=== PATIENT | female | born 1980 | race Caucasian/White ===

== ENCOUNTER 2017-12-05 17:41 | Emergency (ER) | payer BC ==
--- NOTE | 2017-12-05 21:29 | ED ---
Headache - HPI Summary HPI Summary: 37 y/o female presents to the ED c/o severe BHARDWAJ starting at noon today. Pt is 11 weeks . Pain started with pressure at the base of her head after playing with her son. Pressure at neck resolved, BHARDWAJ worsening throughout the day. Waxing and waning BHARDWAJ located diffusely over the head, with severe pains lasting 20-30 minutes. Pt c/o light sensitivity. Pt is nauseous usually at evenings, with this . PMHx migraine BHARDWAJ, Grave's disease (dx 15 years ago). Sx - thyroid removal. Pt has not had a BHARDWAJ like this for 10 years. G/P/A - 0. Pt states her thyroid levels are off currently. - History Of Current Complaint Chief Complaint: EDHeadache Stated Complaint: 11 WKS PREG/HEADACHE Time Seen by Provider: 12/05/17 21:23 Hx Obtained From: Patient Onset/Duration: Started hours ago, Still Present Timing: Constant Character: Sharp Location of Headache: Diffuse Aggravating Factor: Bright Lights Allevating Factors: Nothing Associated Signs And Symptoms: Nausea, Other (Noted In Comments) - light sensitivity - Allergies/Home Medications Allergies/Adverse Reactions: Allergies Allergy/AdvReac Type Severity Reaction Status Date / Time No Known Allergies Allergy Verified 12/05/17 21:54 PMH/Surg Hx/FS Hx/Imm Hx Previously Healthy: No Endocrine/Hematology History: Reports: Hx Thyroid Disease - hypo Denies: Hx Diabetes Cardiovascular History: Denies: Hx Hypertension, Hx Pacemaker/ICD Respiratory History: Denies: Hx Asthma, Hx Chronic Obstructive Pulmonary Disease (COPD) GI History: Denies: Hx Ulcer Sensory History: Denies: Hx Hearing Aid Psychiatric History: Denies: Hx Panic Disorder - Surgical History Surgery Procedure, Year, and Place: orthoscopic rt knee surgery. Mole removal from nose. wisdom teeth Infectious Disease History: No Infectious Disease History: Denies: Hx Hepatitis, Hx Human Immunodeficiency Virus (HIV), Traveled Outside the [place] in Last 30 Days - Social History Alcohol Use: Occasionally Substance Use Type: Reports: None Smoking Status (MU): Never Smoked Tobacco Review of Systems Constitutional: Negative Positive: Photophobia ENT: Negative Cardiovascular: Negative Respiratory: Negative Positive: Nausea Genitourinary: Negative Musculoskeletal: Negative Skin: Negative Positive: Headache Psychological: Normal All Other Systems Reviewed And Are Negative: Yes Physical Exam - Summary Physical Exam Summary: Appearance: Well-appearing, Well-nourished, lying in bed comfortably Skin: Warm, dry, no obvious rash Eyes: sclera anicteric, no conjunctival pallor ENT: mucous membranes moist, pharynx appears normal Neck: Supple, nontender Respiratory: Clear to auscultation, no signs of respiratory distress Cardiovascular: Normal S1, S2. No murmurs. Normal distal pulses in tibial and radial bilaterally. Abdomen: Soft, nontender, normal active bowel sounds present Musculoskeletal: Normal, Strength/ROM Intact, Motor function in all 4 extremities is normal and symmetric. There is no rigidity or tremor noted. Neurological: A&Ox3, awake and alert, mentation is normal, speech is fluent and appropriate, Level of consciousness nml. The patient is alert and oriented. Cranial nerves are grossly intact. Gaze is conjugate and without nystagmus. Peripheral vision is intact to confrontation. There are no gross sensory abnormalities to light touch. There is no truncal or fine motor ataxia. Gait is normal. Psychiatric: affect is normal, does not appear anxious or depressed Triage Information Reviewed: Yes Vital Signs On Initial Exam: Initial Vitals Temp Pulse Resp BP Pulse Ox 99.5 F 59 16 102/56 100 12/05/17 17:52 12/05/17 17:52 12/05/17 17:52 12/05/17 17:52 12/05/17 17:52 Vital Signs Reviewed: Yes Diagnostics - Vital Signs Vital Signs Temp Pulse Resp BP Pulse Ox 12/05/17 20:29 99.3 F 61 16 105/67 100 12/05/17 18:53 99.7 F 68 16 109/61 100 12/05/17 17:52 99.5 F 59 16 102/56 100 - Laboratory Lab Statement: Any lab studies that have been ordered have been reviewed, and results considered in the medical decision making process. Re-Evaluation - Re-Evaluation 1 Re-Evaluation Time: 23:00 Change: Improved - discussed plan to d/c Headache Course/Dx - Course Assessment/Plan: 37 y/o female presents to the ED c/o severe BHARDWAJ starting at noon today. Pt is 11 weeks . Benadryl, Reglan and fluids given in ED course. On re-eval pt reports sx improved. Pt will be d/c home. - Diagnoses Provider Diagnoses: Migraine headache Discharge - Sign-Out/Discharge Documenting (check all that apply): Patient Departure - Discharge Plan Condition: Stable Disposition: HOME Prescriptions: Metoclopramide TAB* [Reglan TAB*] 10 mg PO Q6H PRN #12 tab PRN Reason: Headache/Pain Patient Education Materials: Migraine Headache (ED) Referrals: Maria E Deng MD [Primary Care Provider] - - Billing Disposition and Condition Condition: STABLE Disposition: Home - Attestation Statements Document Initiated by Scribe: Yes Documenting Scribe: Napoleon Ramirez Provider For Whom Scribe is Documenting (Include Credential): Mehran Sellers MD Scribe Attestation: Napoleon Sow scribed for Mehran Sellers MD on 12/09/17 at 1839. Scribe Documentation Reviewed: Yes Provider Attestation: The documentation as recorded by the Napoleon mahmood accurately reflects the service I personally performed and the decisions made by me, Mehran Sellers MD
[2017-12-05] MEDS ORDERED: diPHENhydraMINE IV* 50 MG/ML 1 ml VIAL (BENADRYL) IV ONE (21:35)
[2017-12-05] MEDS ORDERED: Metoclopramide IV* 5 MG/ML 2 ML VIAL IV SLOW PU ONE (21:36)
[2017-12-05] MEDS: NS 0.9% 1000 ML* 2,000 ML IV ONE (22:00)
[2017-12-05 22:49] VITALS: BP 115/70
== END 2017-12-05 23:16 | disposition home or self-care (01) ==
LOC: ED 17:41
DX: O26.891 Other specified pregnancy related conditions, first trimester (principal); G43.909 Migraine, unspecified, not intractable, without status migrainosus; Z3A.11 11 weeks gestation of pregnancy; O99.281 Endocrine, nutritional and metabolic diseases complicating pregnancy, first trimester; E03.9 Hypothyroidism, unspecified
CPT/HCPCS: 96374; 96375; 99282; J1200; J2765

== ENCOUNTER 2018-06-24 02:58 | Inpatient (IN) | payer BC ==
--- NOTE | 2018-06-24 04:24 | HP ---
General Information - Reason for Visit IUP at 40-02/20 in labor - General Information Maternal Age: 37 Grav: 1 Para: 0 SAB: 0 IEA: 0 Estimated Due Date: 06/23/18 Determined By: LMP Gestational Age in Weeks/Days: 40-02/20 Maternal Blood Type and Rh: A Negative - Results this Serology/RPR Result: Non-Reactive Rubella Result: Immune HBsAg Result: Negative HIV Result: Negative GBS Culture Result: Positive Past Medical History Delivery History: Hx Uncomplicated Vaginal Delivery Delivery History Comment: 10/2015 7lbs 4oz male. Delivered at [facility] [place] by Nannette Ortiz CNM Pertinent Past Medical History: See Records Past Medical History Comment: Graves disease on replacement. Followed by endocrinology. Pre- dose of replacement: 100mcg daily Asthma Migraine Allergies, environmental Pertinent Past Surgical History: See Records Past Surgical History Comment: 2000 right knee arthroscopy 2012 oral surgery Pertinent Family History: See Records Family History Comment: Father: HTN Sister: Ovarian tumor, benign PGM: HTN, peripheral vascular disease. , CVA PGF: HTN. , heart disease MGM: , CHF MGF: , colon cancer Paternal aunt: Breast cancer - Antepartal Records Antepartal Records: Reviewed, Uncomplicated - Rh negative, received RhoGAM, Graves disease on replacement Review of Systems Constitutional: Uncomfortable - with UCs CV Complaint: No Respiratory: Shortness of Breath: No Gastrointestinal: No Nausea/Vomiting, Normal Bowel Movement Genitourinary: No Dysuria, No Bleeding, No Leaking Fluid Musculoskeletal: Contractions, Pressure Neurological: No Headache, No Visual Changes Movement: Normal Exam Allergies/Adverse Reactions: Allergies No Known Allergies Allergy (Verified 03/06/18 11:05) BP 122/69 HR 88 RR 18 T 97.6 - Measurements Height: 5 ft 6.5 in Weight: 178 lb Body Mass Index (BMI): 28.3 Pre- Weight: 135 lb - Exam Breast: Breast Exam Deferred CVA: No CVA Tenderness Extremities: No Edema Heart: Normal Rhythm/Heart Sounds HEENT: No Significant Findings Lungs: Clear Bilaterally Rectal: Rectal Exam Deferred Reflexes: DTR 2+ Thyroid: No Thyromegaly - Ultrasound/Biophysical Profile Ultrasound Status: Not Done Targeted Exam Findings Estimated Weight: EFW 8lbs by Leopoldo Cervical Exam: 5cm Effacement: 100% Station: -1 Presenting Part: Vertex Membrane Status: Bulging Sterile Speculum Exam: Not done Bleeding/Discharge: None EFM Findings - External Monitor Findings Baseline Heart Rate: 145 External Monitor Findings: Accelerations Present, No Pattern of Variable or Late Decelerations, Variability Moderate, Baseline Stable External Monitor Findings Comment: No evidence of metabolic acidemia Contractions: Regular, Moderate, Strong, 45-90 Seconds Contraction Frequency: q 3 min Assessment/Plan - Assessment IUP at 40-1/7 in labor No evidence of metabolic acidemia - Plan Plan: Admit - Anticipate Vaginal Delivery - Date/Time of Admission Date of Admission: 06/24/18 Time of Admission: 03:54
--- NOTE | 2018-06-24 04:54 | PN ---
Progress Note - Progress Note Date of Service: 06/24/18 Note: S: Pt reports increasing rectal pressure and discomfort. Would like to discuss pain relief options O: VSS, afebrile FHT 145bpm. Moderate variability. No decels UCs q 3 min VE: 8cm/100%/vtx -1, BBOW A: IUP at 40-1/7 in active labor No evidence of metabolic acidemia P: Discussed pain relief options given rapid progression in labor. Pt opts to try nitrous oxide. Discussed possibility of AROM PRN. Anticipate trial of pushing soon
[2018-06-24] MEDS ORDERED: Witch Hazel PAD* JAR TOPICAL PRN (06:00)
[2018-06-24] MEDS ORDERED: Glycerin ADULT SUPP PR PRN (06:00)
[2018-06-24] MEDS ORDERED: Lactated Ringers 1000 ML Bag* 1,000 ML IV SCH (06:00)
[2018-06-24] MEDS ORDERED: Dibucaine 1% 28.35 GM TUBE PR PRN (06:00)
[2018-06-24] MEDS ORDERED: OXYTOCIN* 10 UNITS/ML 1 ML VIAL IM ONE (06:00)
--- NOTE | 2018-06-24 06:14 | PROCNOTE ---
[facility] OB: Delivery Note - Delivery A Date of : 06/24/18 Time of : 05:29 [place] Sex: Male - "Kevin" Score 1 Minute: 8 Score 5 Minutes: 9 Gestational Age in Weeks and Days at Delivery: 40 Weeks and 1 Days Delivery Method: Spontaneous Vaginal Labor: Spontaneous Did Patient attempt ?: N/A, No Previous Amniotic Fluid: Clear Estimated Blood Loss: 500 Anesthesia/Analgesia: Nitrous-Labor Delivered By: Irene Haynes - Nursery Level of Nursery: Regular/Bedside - Perineum Perineal Injury: 2nd Degree - repaired with 3-0 Rapide under local infiltration 1% lidocaine. Anatomy restored and good hemostasis achieved. Pt tolerated well Perineal Repair: By Delivering Practioner - Events Delivery Events of Note: Pitocin Only After Delivery - 10 units IM - Additional Delivery Notes Additional Delivery Notes: Pt admitted in active labor with expected progression to complete. Length of active labor 2 hours, 28 min. Spontaneous rupture of membranes with onset of pushing while standing at the bedside. After 10 minutes of pushing pt moved to the bed and pushed well in Cline's position. Pushed x 20 minutes. liveborn male. Slow, controlled delivery of head. OA to JONAH. Shoulders followed in Jatin with strong maternal push. Nuchal cord x 1 reduced after delivery with ease. vigorous with spontaneous cry. HR>110bpm. Delivered to maternal abdomen. Cord clamped x 2 and cut by FOB when pulsations ceased. Spontaneous delivery intact placenta. Membranes complete. Fundus firm to massage. Careful inspection of perineum yielded a second degree laceration which was repaired in the usual fashion as above. After repair fundal massage resulted in expulsion of 300mL clot from lower uterine segment but then fundus firm and bleeding resolved. 10units IM pitocin given. EBL 500mL. At time of note mother and infant in stable condition. Planning to breast feed.
[2018-06-24] MEDS: Ibuprofen TAB* 600 MG PO PRN ×2 (06:31→14:43)
[2018-06-24] MEDS ORDERED: Simethicone TAB* 80 MG TAB.CHEW PO SCH (08:30)
[2018-06-24] MEDS ORDERED: Lidocaine 1% INJ* 10 MG/ML 30 ML SDV ONE (08:40)
[2018-06-24] MEDS: Docusate CAP* 100 MG PO SCH ×3 (09:04→19:58)
[2018-06-24] MEDS: Acetaminophen TAB* 325 MG PO PRN ×2 (09:04→19:58)
[2018-06-24] MEDS: Levothyroxine TAB* 100 MCG TAB PO SCH (11:48)
[2018-06-25] MEDS: Ibuprofen TAB* 600 MG PO PRN ×2 (02:49→08:40)
[2018-06-25] MEDS: Levothyroxine TAB* 100 MCG TAB PO SCH (06:05)
[2018-06-25] MEDS: Acetaminophen TAB* 325 MG PO PRN ×2 (06:05→10:37)
[2018-06-25] MEDS: Docusate CAP* 100 MG PO SCH (08:40)
[2018-06-25 08:46] LABS: ABS Eosinophils 0.1 10^3/ul (0-0.6); ABS Lymphocytes 1.3 10^3/ul (1.0-4.8); ABS Monocytes 0.4 10^3/ul (0-0.8); ABS Neutrophils 7.7 10^3/ul (1.5-7.7); Eosinophil % 0.6 %; Hematocrit 32 % (35-47); Hemoglobin 10.6 g/dL (12.0-16.0); Lymphocyte % 14.1 %; Mean Corpuscular HGB Conc 33 g/dL (31-36); Mean Corpuscular Hemoglobin 27 pg (27-31); Mean Corpuscular Volume 82 fL (80-97); Mean Platelet Volume 7.9 fL (7.4-10.4); Platelet Count 232 10^3/uL (150-450); Red Blood Count 3.89 10^6 /uL (3.70-4.87); Red Cell Distribution Width 13 % (10.5-15); White Blood Count 9.5 10^3/uL (3.5-10.8)
[2018-06-25] MEDS ORDERED: Ferrous Gluconate TAB* 324 MG TAB PO SCH (09:00)
[2018-06-25 09:50] VITALS: BP 110/68
== END 2018-06-25 12:46 | disposition home or self-care (01) | DRG 560 ==
LOC: MCHOBOUT 02:58 → MCHOB 03:54
PROVIDERS: ADMIT Midwife; ATTEND Midwife
PROC: 10E0XZZ Delivery of Products of Conception, External Approach (ICD-10-PCS; principal; 2018-06-24)
PROC: 0KQM0ZZ Repair Perineum Muscle, Open Approach (ICD-10-PCS; 2018-06-24)
DX: O48.0 Post-term pregnancy (principal); Z37.0 Single live birth; O70.1 Second degree perineal laceration during delivery; O99.284 Endocrine, nutritional and metabolic diseases complicating childbirth; E03.9 Hypothyroidism, unspecified; O99.52 Diseases of the respiratory system complicating childbirth; O69.81X0 Labor and delivery complicated by cord around neck, without compression, not applicable or unspecified; J45.909 Unspecified asthma, uncomplicated; Z3A.40 40 weeks gestation of pregnancy
CPT/HCPCS: 36415; 85025; A9270-GY; J2590